=== PATIENT | female | born 1955 | race Caucasian/White ===

== ENCOUNTER → 2024-01-07 09:38 | Outpatient (REF) | payer MEDICARE, SELFPAY | LOC: RAD 09:38 | PROVIDERS: ATTENDING PHYSICIAN Urology; FAMILY PHYSICIAN Family Medicine | DX: N32.81 Overactive bladder (principal); N39.3 Stress incontinence (female) (male); M62.89 Other specified disorders of muscle | CPT/HCPCS: 76770 ==

== ENCOUNTER → 2024-01-29 10:35 | Day surgery (SDC) | payer MEDICARE, SELFPAY | LOC: GI 10:35 | PROVIDERS: ATTENDING PHYSICIAN Internal Medicine | DX: R13.10 Dysphagia, unspecified (principal); K31.7 Polyp of stomach and duodenum; K29.50 Unspecified chronic gastritis without bleeding | CPT/HCPCS: 43249; 43239; 88305; 88342 ==

== ENCOUNTER → 2024-02-03 09:45 | Outpatient (REF) | payer MEDICARE, SELFPAY | LOC: RAD 09:45 | PROVIDERS: ATTENDING PHYSICIAN Internal Medicine; FAMILY PHYSICIAN Family Medicine | DX: R13.19 Other dysphagia (principal) | CPT/HCPCS: 74221 ==

== ENCOUNTER → 2024-03-20 17:06 | Outpatient (REF) | payer MEDICARE, SELFPAY | LOC: RAD 17:06 | PROVIDERS: ATTENDING PHYSICIAN Internal Medicine; FAMILY PHYSICIAN Family Medicine | DX: K21.9 Gastro-esophageal reflux disease without esophagitis (principal); R14.0 Abdominal distension (gaseous) | CPT/HCPCS: 74018 ==

== ENCOUNTER 2024-08-24 06:29 | Day surgery (SDC) | payer MEDICARE, SELFPAY | END 2024-08-24 10:00 | disposition home or self-care (01) | LOC: GI 06:29 | PROVIDERS: ATTENDING PHYSICIAN Internal Medicine | DX: K57.30 Diverticulosis of large intestine without perforation or abscess without bleeding (principal); K63.89 Other specified diseases of intestine; K31.89 Other diseases of stomach and duodenum; K31.7 Polyp of stomach and duodenum; R11.0 Nausea; K30 Functional dyspepsia | CPT/HCPCS: 45380; 43239; 88305; 88342 ==

== ENCOUNTER 2025-09-01 06:21 | Day surgery (SDC) | payer MEDICARE, SELFPAY | END 2025-09-01 10:27 | disposition home or self-care (01) | LOC: GI 06:21 | PROVIDERS: ATTENDING PHYSICIAN Internal Medicine | DX: R13.10 Dysphagia, unspecified (principal); R10.13 Epigastric pain; K29.60 Other gastritis without bleeding; K22.89 Other specified disease of esophagus; K44.9 Diaphragmatic hernia without obstruction or gangrene; K31.89 Other diseases of stomach and duodenum | CPT/HCPCS: 43249; 43239; 88305; 88342 ==